=== PATIENT | female | born 1965 | race African-American/Black ===

== ENCOUNTER 2016-06-20 07:04 | Day surgery (SDC) | payer BC ==
[2016-06-19 10:17] VITALS: BMI 27.6
[~2016-06-20 07:04] MED LIST: LACTATED RINGERS 1,000 ML IV SCH
[2016-06-20 07:20] VITALS: RESP 16; TEMP 97.2
[2016-06-20] MEDS ORDERED: LACTATED RINGERS 1,000 ML IV ONE (07:21)
[2016-06-20] MEDS ORDERED: PROPOFOL 10 MG/ML 20 ML VIAL IV ONE (07:47)
[2016-06-20] MEDS ORDERED: LIDOCAINE 1% INJ 10MG/ML (20 ML MDV) ONE (07:47)
--- NOTE | 2016-06-20 07:55 | P.GSHP ---
History of Present Illness H&P Date: 06/20/16 Chief Complaint: Screen colonoscopy This is a 50-year-old female who presents today for screening colonoscopy. Patient denies any significant GI complaints. - Constitutional Constitutional: Reports as per HPI Past Medical History Past Medical History: Skin Disorder Additional Past Medical History / Comment(s): Seasonal allergies. Hx of Shingles around eye area. History of Any Multi-Drug Resistant Organisms: None Reported Past Surgical History: Orthopedic Surgery Additional Past Surgical History / Comment(s): Hx Rt. bunion surg. and D & C. Past Anesthesia/Blood Transfusion Reactions: No Reported Reaction Past Psychological History: No Psychological Hx Reported Smoking Status: Former smoker Past Alcohol Use History: Occasional Additional Past Alcohol Use History / Comment(s): Hx social smoking with <1/2 ppd, from [id number]. Past Drug Use History: None Reported - Past Family History Mother Family Medical History: No Reported History Medications and Allergies Home Medications Medication Instructions Recorded Confirmed Type Green Tea Appetite Supressant 3 tab PO DAILY 06/19/16 06/20/16 History Allergies Allergy/AdvReac Type Severity Reaction Status Date / Time No Known Allergies Allergy Verified 06/20/16 07:09 Surgical - Exam Vital Signs Temp Pulse Resp BP Pulse Ox 97.2 F L 63 16 135/74 99 06/20/16 07:17 06/20/16 07:17 06/20/16 07:17 06/20/16 07:17 06/20/16 07:17 - General well developed, well nourished - Eyes PERRL - ENT normal pinna - Neck no masses - Respiratory normal expansion - Cardiovascular Rhythm: regular - Abdomen Abdomen: soft, non tender Assessment and Plan Plan: We'll perform screening colonoscopy
--- NOTE | 2016-06-20 08:13 | P.OP ---
Date of Procedure: 06/20/16 Preoperative Diagnosis: Screening colonoscopy Postoperative Diagnosis: Normal colon Procedure(s) Performed: Colonoscopy Anesthesia: MAC Surgeon: Alfredo Stovall Pathology: none sent Condition: stable Disposition: PACU Description of Procedure: PROCEDURE: The patient was placed on the endoscopy table in the lateral position. Digital rectal examination was performed which revealed no abnormalities. Flexible colonoscope was then placed in the patient's anus and passed throughout the entire colon. The ileocecal valve was visualized. The cecum, ascending, transverse, descending and sigmoid colon were normal. The rectum was normal as well. There were no masses, polyps or diverticula noted in the entire colon. SUMMARY OF FINDINGS: Normal colonoscopy.
[2016-06-20] MEDS ORDERED: ONDANSETRON 4 MG/2 ML VIAL IVP ONE (08:25)
[2016-06-20 08:31] VITALS: BP 136/91; PULSE 69
== END 2016-06-20 09:10 | disposition home or self-care (01) ==
LOC: ORWHC2ENDO 07:04
PROVIDERS: ATTEND Surgery
DX: Z12.11 Encounter for screening for malignant neoplasm of colon (principal); Z87.891 Personal history of nicotine dependence
CPT/HCPCS: J2405; J2001; J2704; G0121; 99153

== ENCOUNTER 2016-08-12 18:17 | Emergency (ER) | payer BC ==
--- NOTE | 2016-08-12 20:33 | ED ---
General Adult HPI - General Chief complaint: Upper Respiratory Infection Stated complaint: Chest congestion/sob Source: patient Mode of arrival: wheelchair Limitations: no limitations - History of Present Illness Initial comments: 50-year-old medical female presented for evaluation of URI symptoms since yesterday. She states that she has chest tightness, headache, myalgias, and nonproductive cough although she feels like she does have mucus down in there. 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 She denies any exertional dyspnea or chest pain and has no cardiac history. She states that she has been subjectively febrile with associated chills but denies nausea, vomiting, abdominal pain, dysuria, bowel abnormalities. - Related Data Home Medications Medication Instructions Recorded Confirmed Dm/PE/Acetaminophen/Doxylamine 1 cap PO Q6H PRN 08/12/16 08/12/16 [[facility]] guaiFENesin [Mucinex] 600 mg PO Q12H PRN 08/12/16 08/12/16 Previous Rx's Medication Instructions Recorded Oseltamivir [Tamiflu] 75 mg PO Q12HR #10 cap 08/12/16 Allergies Allergy/AdvReac Type Severity Reaction Status Date / Time No Known Allergies Allergy Verified 08/12/16 20:38 Review of Systems ROS Statement: Those systems with pertinent positive or pertinent negative responses have been documented in the HPI. ROS Other: All systems not noted in ROS Statement are negative. Constitutional: Reports: fever, chills. Denies: weakness, weight change Eyes: Denies: eye pain, eye discharge ENT: Denies: ear pain, throat pain Respiratory: Reports: cough, dyspnea. Denies: wheezes, hemoptysis, stridor Cardiovascular: Reports: other (Chest discomfort with cough.). Denies: chest pain, palpitations Endocrine: Reports: fatigue. Denies: polydipsia, polyuria Gastrointestinal: Denies: abdominal pain, nausea, vomiting Genitourinary: Denies: urgency, dysuria Musculoskeletal: Reports: myalgia. Denies: back pain Skin: Denies: rash, lesions Neurological: Reports: headache. Denies: weakness Psychiatric: Denies: anxiety, depression Hematological/Lymphatic: Denies: easy bleeding, easy bruising Past Medical History Past Medical History: Skin Disorder Additional Past Medical History / Comment(s): Seasonal allergies. Hx of Shingles around eye area. History of Any Multi-Drug Resistant Organisms: None Reported Past Surgical History: Orthopedic Surgery Additional Past Surgical History / Comment(s): Hx Rt. bunion surg. and D & C. Past Anesthesia/Blood Transfusion Reactions: No Reported Reaction Past Psychological History: No Psychological Hx Reported Smoking Status: Former smoker Past Alcohol Use History: Occasional Additional Past Alcohol Use History / Comment(s): Hx social smoking with <1/2 ppd, from [id number]. Past Drug Use History: None Reported - Past Family History Mother Family Medical History: No Reported History General Exam Limitations: no limitations General appearance: alert, in no apparent distress Head exam: Present: atraumatic, normocephalic, normal inspection Eye exam: Present: normal appearance, PERRL, EOMI. Absent: scleral icterus, conjunctival injection, periorbital swelling ENT exam: Present: normal exam, mucous membranes moist Neck exam: Present: normal inspection. Absent: tenderness, meningismus, lymphadenopathy Respiratory exam: Present: normal lung sounds bilaterally. Absent: respiratory distress, wheezes, rales, rhonchi, stridor Cardiovascular Exam: Present: regular rate, normal rhythm, normal heart sounds. Absent: systolic murmur, diastolic murmur, rubs, gallop, clicks GI/Abdominal exam: Present: soft, normal bowel sounds. Absent: distended, tenderness, guarding, rebound, rigid Rectal exam: Present: deferred Extremities exam: Present: normal inspection, full ROM, normal capillary refill. Absent: tenderness, pedal edema, joint swelling, calf tenderness Back exam: Present: normal inspection Neurological exam: Present: alert, oriented X3, CN II-XII intact Psychiatric exam: Present: normal affect, normal mood Skin exam: Present: warm, dry, intact, normal color. Absent: rash Course Vital Signs 08/12/16 19:01 Temperature 98.8 F Pulse Rate 97 Respiratory 16 Rate Blood Pressure 128/83 O2 Sat by Pulse 100 Oximetry EKG Findings - EKG Comments: EKG Findings:: Normal sinus rhythm with ventricular rate of 78, ISAAC 154, QRS 78 , QT/QTC 380/433. Medical Decision Making - Medical Decision Making 50-year-old -Spanish female presented for evaluation of nonproductive cough with shortness of breath and chest discomfort with coughing. She also states her symptoms associated headache. On physical examination she is warm to palpation although she is afebrile. Lungs are clear to auscultation bilaterally. Given her symptoms are consistent with influenza we'll obtain an influenza swab and a chest x-ray. We'll also obtain EKG. Influenza B-positive. Chest x-ray negative for acute process. The patient was given her first dose of Tamiflu here in the ED and a prescription for outpatient treatment. She was further advised to follow with her primary care physician but to return to this facility if her symptoms should worsen or persist. The patient acknowledged an understanding of this information and agreed with this plan of care. - Lab Data Lab Results 08/12/16 Range/Units 20:16 Influenza Type A RNA Not Detected (Not Detectd) Influenza Type B (PCR) Detected H (Not Detectd) Disposition Clinical Impression: Influenza B, Myalgia Disposition: HOME SELF-CARE Condition: Stable Instructions: Upper Respiratory Infection (ED), Influenza (ED) Additional Instructions: Please use medication as discussed. Please follow up with family doctor if symptoms have not improved over the next two days. Please return to the emergency room if your symptoms increase or worsen or for any other concerns. Prescriptions: Oseltamivir [Tamiflu] 75 mg PO Q12HR #10 cap Time of Disposition: 20:52
[2016-08-12] MEDS ORDERED: OSELTAMIVIR 75 MG CAP PO STA (20:50)
--- NOTE | 2016-08-12 20:55 | XR ---
EXAMINATION TYPE: XR chest 2V DATE OF EXAM: 08/12/2016 8:26 PM COMPARISON: NONE HISTORY: Cough TECHNIQUE: Frontal and lateral views of the chest are obtained. FINDINGS: There is no focal air space opacity, pleural effusion, or pneumothorax seen. The cardiac silhouette size is within normal limits. The osseous structures are intact. IMPRESSION: No acute cardiopulmonary process.
[2016-08-12] MEDS ORDERED: ACETAMINOPHEN TAB 325 MG TAB PO STA (21:23)
[2016-08-12 21:32] VITALS: BP 140/87; PULSE 81; RESP 18; TEMP 101.9
== END 2016-08-12 21:34 | disposition home or self-care (01) ==
LOC: EC 18:17
DX: J10.1 Influenza due to other identified influenza virus with other respiratory manifestations (principal); M79.1 Myalgia; R07.89 Other chest pain; Z87.891 Personal history of nicotine dependence
CPT/HCPCS: 71020; 87502; 93005; 99284

== ENCOUNTER → 2016-11-03 | Outpatient (CLI) | payer BC ==
[2016-11-03 11:51] LABS: Follicle Stimulating Hormone 26.3 mIU/mL; Prolactin 4.5 ng/mL (3.0-18.6)
== END | disposition home or self-care (01) ==
LOC: LABWHC1 10:28
PROVIDERS: ATTEND Obstetrics & Gynecology
DX: N95.0 Postmenopausal bleeding (principal)
CPT/HCPCS: 36415; 82670; 83001; 83002; 84146; 84439; 84443

== ENCOUNTER → 2016-12-26 | Outpatient (CLI) | payer BC ==
[2016-12-26 12:02] LABS: Aty Lym Flag Marked; CH 27.6; CHCM 31.5; HCT 43.3 % (34.0-46.0); HDW 2.03; HGB 14.3 gm/dL (11.4-16.0); MCHC 32.9 g/dL (31.0-37.0); MCV 88.2 fL (80.0-100.0); Mean Platelet Volume 9.9; RBC 4.91 m/uL (3.80-5.40); RDW 12.4 % (11.5-15.5); WBC 4.7 k/uL (3.8-10.6); WBC (Perox) 4.84
[2016-12-26 13:02] LABS: Add Differential Manual Differential
[2016-12-26 13:04] LABS: Manual Review Performed; Nucleated Red Blood Cells 0 /100 WBC (0-0); RBC Morphology Normal; Total Cells Counted 100
== END | disposition home or self-care (01) ==
LOC: LABPAT 11:17
PROVIDERS: ATTEND Obstetrics & Gynecology
DX: Z01.810 Encounter for preprocedural cardiovascular examination (principal); Z01.812 Encounter for preprocedural laboratory examination
CPT/HCPCS: 36415; 85025; 93005

== ENCOUNTER 2016-12-31 11:31 | Day surgery (SDC) | payer BC ==
[2016-12-23 12:43] VITALS: BMI 26.1
[~2016-12-31 11:31] MED LIST changes: +DEXAMETHASONE SOD PHOSPHATE 10 MG/ML 1 ML VIAL IV ONE; +LIDOCAINE 1% 20 ML VIAL (10MG/ML) FOR IV START INTRADERMA PRN; +ONDANSETRON 4 MG/2 ML VIAL IVP ONE; +Pre Op ABX Message 1 EACH MISC MISCELLANE ONE; +SCOPOLAMINE 1.5MG/72HR PATCH TRANSDERM ONE
--- NOTE | 2016-12-31 11:56 | P.HPOB ---
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 She is therefore scheduled for a D&C due to cervical stenosis precluding us being able to do a biopsy the office. Risks/benefits were discussed with patient in detail and all questions are answered for her prior to proceeding to the operating room. On physical exam vital signs are stable and afebrile. Heart regular, lungs clear, extremities without pain. Of exams otherwise unremarkable. Abdomen soft nontender positive bowel sounds are noted. Assessment endometrial cells out of phase. Plan D&C hysteroscopy. Past Medical History Past Medical History: Skin Disorder Additional Past Medical History / Comment(s): Seasonal allergies. Hx of Shingles around eye area 01/2016 History of Any Multi-Drug Resistant Organisms: None Reported Past Surgical History: Orthopedic Surgery Additional Past Surgical History / Comment(s): Hx Rt. bunion surg. and D & C. Past Anesthesia/Blood Transfusion Reactions: No Reported Reaction Smoking Status: Former smoker - Past Family History Mother Family Medical History: No Reported History Medications and Allergies Home Medications Medication Instructions Recorded Confirmed Type No Known Home Medications [No 12/23/16 12/31/16 History Known Home Medications] Allergies Allergy/AdvReac Type Severity Reaction Status Date / Time No Known Allergies Allergy Verified 12/31/16 11:49 Exam Osteopathic Statement: *. No significant issues noted on an osteopathic structural exam other than those noted in the History and Physical/Consult.
[2016-12-31] MEDS ORDERED: fentaNYL (PF) 50 MCG/ML 2 ML AMP ONE (12:19)
[2016-12-31] MEDS ORDERED: MIDAZOLAM 2 MG/2 ML VIAL ONE (12:19)
[2016-12-31] MEDS ORDERED: PROPOFOL 10 MG/ML 20 ML VIAL IV ONE (12:19)
[2016-12-31] MEDS ORDERED: LIDOCAINE 1% INJ 10MG/ML (20 ML MDV) ONE (12:19)
--- NOTE | 2016-12-31 12:48 | P.OP ---
Date of Procedure: 12/31/16 Preoperative Diagnosis: Endometrial cells on Pap smear Postoperative Diagnosis: Same Procedure(s) Performed: Dilation and curettage Implants: Anesthesia: MELAA Surgeon: Jt Erwin Estimated Blood Loss (ml): 5 Pathology: other (Uterine curettings) Condition: stable Disposition: same day Indications for Procedure: Operative Findings: Perforation of the uterus posteriorly was noted during the curettage portion. What tissue was collected was sent to pathology for evaluation Description of Procedure: Patient was taken the operating suite where a general anesthetic was found be adequate. She was prepped and draped in the normal sterile fashion and placed in dorsal lithotomy position. Initially a weighted speculum was inserted into the vagina and the anterior lip cervix identified and grasped with Allis clamp. Due to cervical stenosis a hemostat was used to begin to dilate cervix. Once this was done brii dilators were used to dilate the remainder of the cervix. There was some bleeding noted from cervical os likely due to the cervical stenosis therefore due to limited visibility hysteroscopy was not done. Once this was accomplished sharp curettings of endometrium were obtained tissues collected then nearing the end of the collection of the curettings I could feel a perforation posteriorly therefore instruments were removed and procedure was terminated at this point. She was watched in the operative room for 5 minutes and no bleeding is noted. We'll keep her in recovery for extra time to verify that she has no problems were issues with perforation. Again there was no bleeding from the vagina following the perforation and I suspect that perforation is posteriorly based on the way it felt during the procedure and assumes I felt perforation and did stop. Patient was taken to the recovery room in stable condition. Plan - Discharge Summary New Discharge Prescriptions: New Acetaminophen-Codeine 300-30mg [Tylenol #3] 1 tab PO Q4H PRN #30 tablet PRN Reason: Pain Ibuprofen [Motrin] 600 mg PO Q6HR PRN #30 tab PRN Reason: Pain Discharge Medication List Acetaminophen-Codeine 300-30mg [Tylenol #3] 1 tab PO Q4H PRN #30 tablet [Rx] Ibuprofen [Motrin] 600 mg PO Q6HR PRN #30 tab 12/31/16 [Rx] Follow up Appointment(s)/Referral(s): Jt Erwin DO [Doctor of Osteopathic Medicine] - 1 Week Activity/Diet/Wound Care/Special Instructions: No heavy lifting, limit stairs and driving and pelvic rest. If any high temperatures, heavy bleeding, or severe pain report to emergency room or call my office Discharge Disposition: HOME SELF-CARE
[2016-12-31] MEDS ORDERED: KETOROLAC 30 MG/ML 1 ML VIAL IVP ONE (12:53)
[2016-12-31 12:57] VITALS: TEMP 98
[2016-12-31] MEDS: HYDROmorphone 1 MG/ML 1 ML SYRINGE IVP PRN ×2 (13:20→13:30)
[2016-12-31 13:38] VITALS: RESP 18
[2016-12-31 15:48] VITALS: BP 131/73; PULSE 70
== END 2016-12-31 15:40 | disposition home or self-care (01) ==
LOC: OR 11:31
PROVIDERS: ATTEND Obstetrics & Gynecology
DX: R87.618 Other abnormal cytological findings on specimens from cervix uteri (principal); Z86.19 Personal history of other infectious and parasitic diseases; Z87.891 Personal history of nicotine dependence; N88.2 Stricture and stenosis of cervix uteri
CPT/HCPCS: 81025; 88305

== ENCOUNTER → 2017-01-14 | Outpatient (CLI) | payer BC ==
--- NOTE | 2017-01-15 09:10 | USB ---
Reason for exam: clinical finding. History: Took hormonal contraceptives for 11 years. Physical Findings: Nurse did not find any significant physical abnormalities on exam. US Breast LT Left breast ultrasound includes all four quadrants, the retroareolar region and axilla. Finding demonstrates no cystic or solid lesion seen. No suspicious sonographic findings. No cystic or solid masses. These results were verbally communicated with the patient and result sheet given to the patient on 01/14/17. ASSESSMENT: Negative, BI-RAD 1 RECOMMENDATION: Routine screening mammogram of both breasts in 1 year. Manage patient on a clinical basis.
== END ==
LOC: RADUSWWP 13:59
PROVIDERS: ATTEND Family Medicine
DX: N60.02 Solitary cyst of left breast (principal)

== ENCOUNTER 2021-01-03 07:08 | Day surgery (SDC) | payer BC ==
[2020-12-31 15:56] VITALS: BMI 24.7
[~2021-01-03 07:08] MED LIST changes: -DEXAMETHASONE SOD PHOSPHATE 10 MG/ML 1 ML VIAL IV ONE; -LIDOCAINE 1% 20 ML VIAL (10MG/ML) FOR IV START INTRADERMA PRN; -ONDANSETRON 4 MG/2 ML VIAL IVP ONE; -Pre Op ABX Message 1 EACH MISC MISCELLANE ONE; -SCOPOLAMINE 1.5MG/72HR PATCH TRANSDERM ONE
[2021-01-03 07:42] LABS: Glucose,Whole Blood 96 mg/dL (75-99)
[2021-01-03 07:46] VITALS: RESP 16; TEMP 97
[2021-01-03] MEDS ORDERED: LIDOCAINE 1% (10MG/ML) FOR IV START INTRADERMA ONE (07:46)
[2021-01-03] MEDS ORDERED: PROPOFOL 10 MG/ML 20 ML VIAL IV ONE (08:42)
[2021-01-03] MEDS ORDERED: LIDOCAINE 1% INJ 10MG/ML (20 ML MDV) ONE (08:42)
[2021-01-03] MEDS ORDERED: GLYCOPYRROLATE 0.2 MG/ML 2 ML VIAL ONE (08:42)
--- NOTE | 2021-01-03 08:46 | P.GSHP ---
History of Present Illness H&P Date: 01/03/21 Chief Complaint: GERD This is a 55-year-old female with a safer EGD. Patient has had issues with GERD. Patient BEEN recently diagnosed site diabetic. She states her GERD symptoms once her diabetes medications started Past Medical History Past Medical History: Diabetes Mellitus, GERD/Reflux Additional Past Medical History / Comment(s): Shingles eye area 01/2016 . History of Any Multi-Drug Resistant Organisms: None Reported Past Surgical History: Orthopedic Surgery Additional Past Surgical History / Comment(s): Hx Rt. bunion surg. and D & C. Past Anesthesia/Blood Transfusion Reactions: No Reported Reaction Past Psychological History: Anxiety Smoking Status: Former smoker Past Alcohol Use History: Occasional Additional Past Alcohol Use History / Comment(s): smoked for a couple years as teenager. Past Drug Use History: None Reported Additional Drug Use History / Comment(s): OCCASIONAL CBD OR GUMMIES. - Past Family History Mother Family Medical History: No Reported History Medications and Allergies Home Medications Medication Instructions Recorded Confirmed Type Cannabidiol (Cbd) [Epidiolex] 0 mg PO DIRECTED PRN 12/31/20 01/03/21 History Insulin Degludec [Tresiba 12 units SQ HS 12/31/20 01/03/21 History Flextouch U-100] Multivit with Calcium,Iron,Min 2 each PO DAILY 12/31/20 01/03/21 History [Women's Multivitamin] Semaglutide [Rybelsus] 3 mg PO DAILY 12/31/20 01/03/21 History Vitamin C/Biotin [Hair, Skin and 1 tab PO DAILY 12/31/20 01/03/21 History Nails] Allergies Allergy/AdvReac Type Severity Reaction Status Date / Time No Known Allergies Allergy Verified 12/31/20 15:15 Surgical - Exam Vital Signs Temp Pulse Resp BP Pulse Ox 97 F L 66 16 134/65 96 01/03/21 07:45 01/03/21 07:45 01/03/21 07:45 01/03/21 07:45 01/03/21 07:45 - General well developed, well nourished, no distress - Eyes PERRL - ENT normal pinna - Neck no masses - Respiratory normal expansion - Cardiovascular Rhythm: regular - Abdomen Abdomen: soft, non tender Assessment and Plan Assessment: GERD. We'll perform EGD.
--- NOTE | 2021-01-03 08:53 | P.OP ---
Date of Procedure: 01/03/21 Preoperative Diagnosis: GERD Postoperative Diagnosis: Moderate size hiatal hernia Procedure(s) Performed: EGD Anesthesia: MAC Surgeon: Alfredo Stovall Pathology: other (Antrum, esophagus) Condition: stable Disposition: PACU Description of Procedure: The patient's placed on the endoscopy table in the lateral position. She received IV sedation. The gastroscope placed oropharynx passed in the esophagus and stomach. Scope was then placed through the pylorus. The first and second portion of the duodenum appeared normal. Scope was then brought back the antrum and this appeared mildly inflamed. A biopsy was performed. The scope was then retroflexed and remainder of the stomach appeared normal. There was a moderate size hiatal hernia. The GE junction was at 38 cm. The distal esophagus appeared mildly inflamed a biopsies performed. The proximal esophagus appeared normal. Scope withdrawn for patient.
[2021-01-03 09:14] VITALS: BP 139/88; PULSE 66
== END 2021-01-03 09:28 | disposition home or self-care (01) ==
LOC: ORWHC2ENDO 07:08
PROVIDERS: ATTEND Surgery
DX: K44.9 Diaphragmatic hernia without obstruction or gangrene (principal); K29.70 Gastritis, unspecified, without bleeding; K21.9 Gastro-esophageal reflux disease without esophagitis; E11.9 Type 2 diabetes mellitus without complications; Z79.4 Long term (current) use of insulin; Z87.891 Personal history of nicotine dependence
CPT/HCPCS: 43239; 88305; 88342; J2001; J2704

== ENCOUNTER → 2022-12-01 | Outpatient (CLI) | payer BC ==
[2022-12-01 16:18] LABS: ALT 25 U/L (8-44); AST 23 U/L (13-35); Albumin 4.9 d/dL (3.8-4.9); Albumin/Globulin Ratio 1.44 Ratio (1.60-3.17); Alkaline Phosphatase 88 U/L (41-126); Blood Urea Nitrogen 11.1 mg/dL (9.0-27.0); Calcium 10.2 mg/dL (8.7-10.3); Carbon Dioxide 26.6 mmol/L (21.6-31.8); Chloride 103 mmol/L (96-109); Globulin 3.4 d/dL (1.6-3.3); Glucose 96 mg/dL (70-110); Potassium 4.2 mmol/L (3.5-5.5); Sodium 140 mmol/L (135-145); Total Bilirubin 0.3 mg/dL (0.3-1.2); Total Protein 8.3 d/dL (6.2-8.2)
[2022-12-01 18:35] LABS: C-Peptide 2.71 ng/mL (0.81-3.85)
== END | disposition home or self-care (01) ==
LOC: LABWHC1 09:49
PROVIDERS: ATTEND Internal Medicine Endocrinology, Diabetes & Metabolism
DX: E10.65 Type 1 diabetes mellitus with hyperglycemia (principal)
CPT/HCPCS: 36415; 80053; 84443; 84681

== ENCOUNTER → 2023-10-28 | Outpatient (CLI) | payer BC ==
[2023-10-28 10:52] LABS: Albumin 4.8 g/dL (3.5-5.0); Albumin/Globulin Ratio 1.2; Calcium 9.8 mg/dL (8.4-10.2); Potassium 4.2 mmol/L (3.5-5.1); Total Bilirubin 0.9 mg/dL (0.2-1.3); Total Protein 8.8 g/dL (6.3-8.2)
[2023-10-28 13:33] LABS: Glucose 2 Hour 123 mg/dL
[2023-10-28 18:31] LABS: BUN/Creat Ratio 12.3 Ratio (12.00-20.00)
[2023-10-28 19:05] LABS: C-Peptide 2.12 ng/mL (0.81-3.85)
== END | disposition home or self-care (01) ==
LOC: LABWHC1 09:32
PROVIDERS: ATTEND Internal Medicine Endocrinology, Diabetes & Metabolism
DX: E10.65 Type 1 diabetes mellitus with hyperglycemia (principal)
CPT/HCPCS: 36415; 80053; 82947; 82950; 83036; 83519; 84681; 86337; 86341

== ENCOUNTER → 2024-01-19 | Outpatient (CLI) | payer BC ==
[2024-01-19 10:33] VITALS: PULSE 67; RESP 16; TEMP 98.4
[2024-01-19 11:14] VITALS: BP 120/87
--- NOTE | 2024-01-19 11:29 | P.HPOB ---
History of Present Illness H&P Date: 01/19/24 Chief Complaint: Patient is here for her routine gynecologic exam. This is a 58-year-old with an LMP of 2013. Patient is here to establish with this office. She previously saw Dr. Toro for her gynecologic care. It was about 1 year ago since her last pelvic exam. She has noticed some decreased pigmentation in the labia region. She states it is symmetrical and is not painful or irritated. She also has been experiencing some vaginal dryness with sexual intercourse and this does seem to be improved with lubrication. She is otherwise without gynecologic complaints and denies any postmenopausal bleeding. Review of Systems She has lost about 15 pounds intentionally over the past 2 years. She denies respiratory or GI problems. Cardiac: Infrequent brief episodes of fluttering noted. She denies lightheadedness or faint feeling at those times. Past Medical History Past Medical History: Diabetes Mellitus, GERD/Reflux Additional Past Medical History / Comment(s): Type 2 diabetes. Eczema. Shingles eye area 01/2016 . 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 History of Any Multi-Drug Resistant Organisms: None Reported Past Surgical History: Orthopedic Surgery Additional Past Surgical History / Comment(s): Hx Rt. bunion surg. and D & C. Colonoscopy 2016. EGD 2020. Past Anesthesia/Blood Transfusion Reactions: No Reported Reaction Past Psychological History: Anxiety Smoking Status: Former smoker Past Alcohol Use History: Occasional (About 1 drink per week.) Additional Past Alcohol Use History / Comment(s): Smoking cigarettes in her 30s. Past Drug Use History: Marijuana (Occasionally smokes marijuana, not daily.) Additional Drug Use History / Comment(s): OCCASIONAL CBD OR GUMMIES. - Past Family History Mother Family Medical History: Cancer Additional Family Medical History / Comment(s): Leukemia. Maternal aunt had breast cancer. Father Family Medical History: Diabetes Mellitus Additional Family Medical History / Comment(s): . Medications and Allergies Home Medications Medication Instructions Recorded Confirmed Type Semaglutide [Rybelsus] 14 mg PO DAILY 12/31/20 01/19/24 History Omeprazole [PriLOSEC] 10 mg PO DAILY 01/19/24 01/19/24 History Allergies Allergy/AdvReac Type Severity Reaction Status Date / Time No Known Allergies Allergy Verified 01/19/24 10:30 Exam Vital Signs Temp Pulse Resp BP Pulse Ox 01/19/24 10:32 98.4 F 67 16 118/81 100 Intake and Output 01/18/24 01/19/24 01/19/24 22:59 06:59 14:59 Other: Weight 69.4 kg Height 5 feet 7 inches, weight 153 pounds, BMI 24.0. This is a well-developed well-nourished black female who is alert and oriented times 3 in no acute distress. HEENT: Within normal limits. NECK: Supple without mass or thyromegaly. CHEST AND LUNGS: Clear to auscultation. HEART: Regular rate and rhythm. BREASTS: Are without mass or discharge. AXILLARY EXAM: Negative for adenopathy. BACK: Negative for CVA tenderness. ABDOMEN: Soft, nontender, without palpable masses. PELVIC EXAM: External genitalia reveals mild atrophy with nonpigmented areas side of the labia majora and the majority of the labia minora. These seem to be in areas where there is contact with the contralateral side. This is only noticeable when the legs are and the labia are not touching. There is no excoriation or ulceration in these areas. There is no significant erythema. Cervix and vagina appear normal with mild atrophy. There is no unusual discharge. There is no evidence of prolapse. The uterus is retroverted, nongravid size and nontender. There are no palpable adnexal masses or tenderness. RECTAL EXAM: Rectovaginal exam is negative for mass or tenderness and is negative for occult blood. EXTREMITIES: Nontender. IMPRESSION: 1. 58-year-old menopausal female with nonpigmented areas of the labia minora and labia majora. These areas are symmetric and appear benign. Differential diagnosis will include vitiligo and menopausal changes. 2. Vaginal dryness probably secondary to vaginal menopausal changes. This is improved with [id number] lubricants. PLAN: 1. Pap smear cotest was performed. 2. Self breast awareness was discussed with the patient. We have also discussed symptoms associated with inflammatory breast cancer. 3. Screening mammogram was done in July 2023 at [facility] present. She states this was normal. She will repeat this after 1 year. 4. Osteoporosis prevention was discussed. I have stressed the importance of adequate calcium, vitamin D and regular exercise. Recommended amounts of calcium and vitamin D were also discussed. We will plan on doing a baseline bone density test next year. 5. She will see her canoe maker to have her further evaluate the vulvar changes for possible vitiligo. If she notices changes we can consider biopsying this. 6. She will continue to use [id number] lubricants. If things are worsening with vaginal dryness, we will consider trial of vaginal estrogen. 7. She was advised to return in one year for her annual well woman exam and as needed.
== END ==
LOC: WWCWWP 09:49
PROVIDERS: ATTEND Obstetrics & Gynecology
DX: Z01.419 Encounter for gynecological examination (general) (routine) without abnormal findings (principal); N89.8 Other specified noninflammatory disorders of vagina; Z78.0 Asymptomatic menopausal state; Z87.891 Personal history of nicotine dependence; Z80.3 Family history of malignant neoplasm of breast